=== PATIENT | male | born 2005 | race African-American/Black ===

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

== ENCOUNTER 2023-02-23 23:58 | Emergency (ER) | payer OTHER ==
[~2023-02-23] VITALS: Ht 177.8 cm; Wt 91.0 kg
[~2023-02-23 23:58] MED LIST: AMOX-494 MT; IBUP-2028 MT
[2023-02-24 01:38] VITALS: BP 118/85; PULSE 78; RESP 18; TEMP 98.2; O2SAT 100
== END 2023-02-24 04:20 | disposition left against medical advice (07) ==
LOC: ER 23:58
DX: M79.89 Other specified soft tissue disorders (principal); Z53.21 Procedure and treatment not carried out due to patient leaving prior to being seen by health care provider
CPT/HCPCS: 99281

== ENCOUNTER 2023-02-25 16:18 | Emergency (ER) | payer OTHER ==
[~2023-02-25] VITALS: Ht 188 cm; Wt 86.0 kg
[2023-02-25 16:33] VITALS: TEMP 98.7; O2SAT 100
[2023-02-25 20:13] VITALS: BP 139/94; PULSE 61; RESP 18
== END 2023-02-25 20:14 | disposition home or self-care (01) ==
LOC: ER 16:18
DX: M79.641 Pain in right hand (principal); J45.909 Unspecified asthma, uncomplicated
CPT/HCPCS: 73110; 73130; 99284

== ENCOUNTER 2024-04-07 15:23 | Emergency (ER) | payer OTHER ==
[~2024-04-07] VITALS: Ht 182.9 cm; Wt 80.0 kg
[2024-04-07 15:25] VITALS: TEMP 36.7; O2SAT 99
[2024-04-07 18:21] LABS: HEMATOCRIT. 46.2 % (42.0-52.0); MEAN CORPUSCULAR HEMOGLOBIN 25.2 pg (28.0-32.0); MEAN CORPUSCULAR HGB CONC 32.5 g/dL (31.0-37.0); MEAN CORPUSCULAR VOLUME 77.7 fL (80.0-94.0); MEAN PLATELET VOLUME 8.1 fl (7.4-10.4); PLATELET 172 x1000/uL (130-400); RED BLOOD CELL COUNT 5.94 mill/uL (4.7-6.1); RED CELL DISTRIBUTION WIDTH 16.2 % (11.6-14.6); WHITE BLOOD COUNT 8.4 x1000/uL (4.5-11.0)
[2024-04-07] MEDS: ONDANSETRON 4MG ODT PO STA (18:22)
[2024-04-07] MEDS: MAGNESIUM/ALUMINUM HYDROXIDE/SIMETHICONE 30ML UDC PO STA (18:22)
[2024-04-07 18:29] LABS: CHLORIDE 105 mEq/L (98-107); POTASSIUM 3.9 mEq/L (3.5-5.1); SODIUM 141 mEq/L (136-145)
[2024-04-07 18:30] LABS: CALCIUM 9.5 mg/dL (8.7-10.4); CARBON DIOXIDE 28 mEq/L (21-32)
[2024-04-07 18:32] LABS: DIFFERENTIAL COMMENT 1
[2024-04-07 18:35] LABS: GLUCOSE 113 mg/dL (70-105); UREA NITROGEN BLOOD 6 mg/dL (9-23)
[2024-04-07 18:37] LABS: ALANINE AMINOTRANSFERASE 11 IU/L (10-49); ALBUMIN 4.5 g/dL (3.2-4.8); ASPARTATE AMINOTRANSFERASE 24 IU/L (<34); BILIRUBIN DIRECT 0.2 mg/dL (<=3.0); BILIRUBIN TOTAL 0.6 mg/dL (0.1-1.0)
[2024-04-07 18:59] LABS: MICROCYTOSIS 1+; PLATELET ESTIMATE NORMAL
[2024-04-07 19:10] LABS: ETHANOL BLOOD < 10 mg/dL (<10)
[2024-04-07] MEDS ORDERED: ONDA-239 PO (19:59)
[2024-04-07 20:27] VITALS: BP 126/74; PULSE 66; RESP 17; O2SAT 100
== END 2024-04-07 20:28 | disposition home or self-care (01) ==
LOC: ER 15:23
DX: R11.2 Nausea with vomiting, unspecified (principal); J45.909 Unspecified asthma, uncomplicated; Z79.899 Other long term (current) drug therapy; F10.90 Alcohol use, unspecified, uncomplicated; Y90.9 Presence of alcohol in blood, level not specified
CPT/HCPCS: 80076; 80048; 80320; 83690; 85025; 36415; 99283; Q0162; G0480

== ENCOUNTER 2024-09-22 09:56 | Inpatient (IN) | payer SELFPAY ==
[~2024-09-22] VITALS: Ht 188 cm; Wt 84.4 kg
[~2024-09-22 09:56] MED LIST changes: +ONDA-239 PO
[2024-09-22 09:59] VITALS: O2SAT 100
[2024-09-22] MEDS: IBUPROFEN 600MG TABLET PO ONE (10:48)
[2024-09-22 14:45] LABS: BASOPHILS % 0.8 % (0.0-2.0); EOSINOPHILS % 0.3 % (0.0-5.0); HEMATOCRIT. 44.3 % (42.0-52.0); HEMOGLOBIN. 14.3 g/dL (14.0-18.0); LYMPHOCYTES % 24.5 % (20.0-50.0); MEAN PLATELET VOLUME 7.8 fl (7.4-10.4); MONOCYTES % 9.3 % (2.0-8.0); NEUTROPHILS % 65.1 % (40.0-76.0); PLATELET 232 x1000/uL (130-400); RED BLOOD CELL COUNT 5.72 mill/uL (4.7-6.1); RED CELL DISTRIBUTION WIDTH 15.6 % (11.6-14.6)
[2024-09-22] MEDS ORDERED: ONDANSETRON HCL 4MG/2ML INJ IV PRN (14:45)
[2024-09-22] MEDS ORDERED: ACETAMINOPHEN 325MG TABLET PO PRN ×2 (14:45)
[2024-09-22] MEDS ORDERED: IPRATROPIUM/ALBUTEROL 0.5-3(2.5)MG/3ML NEB HHN PRN (14:45)
[2024-09-22 14:58] LABS: INR 1.0
[2024-09-22 15:01] LABS: CREATININE 1.0 mg/dL (0.6-1.3); UREA NITROGEN BLOOD 8 mg/dL (9-23)
[2024-09-22 16:00] VITALS: BP 135/84; PULSE 59; RESP 20; TEMP 36.4; O2SAT 100
[2024-09-22] MEDS ORDERED: DEXT 5%/0.45% NACL 1000ML 1,000 ML IV SCH (18:15)
[2024-09-22 20:00] VITALS: BP_SYST 126; BP_SYST 135; BP_DIAS 71; BP_DIAS 84; PULSE 59; PULSE 62; RESP 18; RESP 20; TEMP 36.4736; TEMP 36.6; O2SAT 100
[2024-09-22] MEDS: KETOROLAC 15MG/ML VIAL IV PRN (22:12)
[2024-09-23] VITALS: BP 153/91; PULSE 85; RESP 18; TEMP 36.7; O2SAT 96
[2024-09-23] MEDS: FAMOTIDINE 20MG TABLET PO SCH (01:29)
[2024-09-23 04:00] VITALS: BP 132/72; PULSE 68; RESP 17; TEMP 36.6; O2SAT 97
[2024-09-23 08:00] VITALS: BP 121/89; PULSE 63; RESP 18; TEMP 36.9; O2SAT 99
[2024-09-23 08:01] LABS: BASOPHILS % 0.8 % (0.0-2.0); EOSINOPHILS % 0.8 % (0.0-5.0); HEMATOCRIT. 43.7 % (42.0-52.0); HEMOGLOBIN. 14.0 g/dL (14.0-18.0); LYMPHOCYTES % 25.8 % (20.0-50.0); MEAN PLATELET VOLUME 7.9 fl (7.4-10.4); MONOCYTES % 10.9 % (2.0-8.0); NEUTROPHILS % 61.7 % (40.0-76.0); PLATELET 215 x1000/uL (130-400); RED BLOOD CELL COUNT 5.67 mill/uL (4.7-6.1); RED CELL DISTRIBUTION WIDTH 15.8 % (11.6-14.6)
[2024-09-23 08:07] LABS: CREATININE 1.1 mg/dL (0.6-1.3); UREA NITROGEN BLOOD 9 mg/dL (9-23)
[2024-09-23 12:00] VITALS: BP 143/88; PULSE 75; RESP 18; TEMP 36.8; O2SAT 100
== END 2024-09-23 13:05 | disposition left against medical advice (07) | DRG 342 ==
LOC: ER 09:56 → 6EST 14:37 → EDBEDREQTM 14:40 → EDBEDREQ 14:40 → ENRESERV 15:32
PROVIDERS: ADMIT Internal Medicine; ATTEND Internal Medicine
DX: S62.314A Displaced fracture of base of fourth metacarpal bone, right hand, initial encounter for closed fracture (principal); J45.990 Exercise induced bronchospasm; S63.054A Dislocation of other carpometacarpal joint of right hand, initial encounter; W22.01XA Walked into wall, initial encounter; Y93.89 Activity, other specified; Y92.89 Other specified places as the place of occurrence of the external cause; Y99.8 Other external cause status; Z88.5 Allergy status to narcotic agent; Z53.29 Procedure and treatment not carried out because of patient's decision for other reasons
CPT/HCPCS: 36415; 73110; 73130; 80048; 82550; 85025; 86850; 86900; 99285; A4606; J1885

== ENCOUNTER 2025-01-13 21:05 | Emergency (ER) | payer MEDICAID ==
[~2025-01-13] VITALS: Ht 182.9 cm; Wt 78.0 kg
[2025-01-13 21:20] VITALS: O2SAT 99
[2025-01-13] MEDS: ONDANSETRON HCL 4MG/2ML INJ IV ONE (22:20)
[2025-01-13] MEDS: PANTOPRAZOLE SODIUM 40 MG/VIAL IV ONE (22:20)
[2025-01-13] MEDS: KETOROLAC 30MG/ML VIAL IV ONE (22:20)
[2025-01-13] MEDS: SODIUM CHLORIDE 0.9% 1,000 ML IV ONE (22:27)
[2025-01-13 23:58] LABS: HEMATOCRIT. 40.9 % (42.0-52.0); HEMOGLOBIN. 12.8 g/dL (14.0-18.0); MEAN PLATELET VOLUME 7.6 fl (7.4-10.4); PLATELET 214 x1000/uL (130-400); RED BLOOD CELL COUNT 5.32 mill/uL (4.7-6.1); RED CELL DISTRIBUTION WIDTH 15.8 % (11.6-14.6)
[2025-01-14 00:12] LABS: LYMPHOCYTES % MANUAL 7.0 % (20.0-50.0); MONOCYTES % MANUAL 4.0 % (2.0-8.0); NEUTROPHILS % MANUAL 89.0 % (45.0-75.0); PLATELET ESTIMATE NORMAL
[2025-01-14 00:14] LABS: CREATININE 0.7 mg/dL (0.6-1.3); UREA NITROGEN BLOOD < 5 mg/dL (9-23)
[2025-01-14 00:15] LABS: ETHANOL BLOOD < 10 mg/dL (<10); PROTEIN TOTAL 7.0 g/dL (6.0-8.3)
[2025-01-14 00:16] LABS: ASPARTATE AMINOTRANSFERASE 16 IU/L (<34); BILIRUBIN DIRECT 0.2 mg/dL (<=3.0); BILIRUBIN TOTAL 0.6 mg/dL (0.1-1.0)
[2025-01-14] MEDS: METOCLOPRAMIDE HCL 10MG/2ML VIAL IV ONE (00:53)
[2025-01-14] MEDS ORDERED: ONDA-239 PO (00:57)
[2025-01-14 01:20] VITALS: BP 132/84; PULSE 68; RESP 14; TEMP 36.5; O2SAT 100
== END 2025-01-14 01:22 | disposition home or self-care (01) ==
LOC: ER 21:05
DX: R11.2 Nausea with vomiting, unspecified (principal); J45.909 Unspecified asthma, uncomplicated; Z88.5 Allergy status to narcotic agent
CPT/HCPCS: 80076; 80048; 80320; 83690; 85025; 36415; 96361; 96374; 96375 ×2; 99285; J1885; J2405; J2470; J7030; J2765; G0480